=== PATIENT | male | born 1955 | race Caucasian/White ===

== ENCOUNTER → 2016-11-23 | Outpatient (CLI) | payer OTHER, BC | END | disposition home or self-care (01) | LOC: CDC 08:09 | DX: I45.10 Unspecified right bundle-branch block (principal); R94.31 Abnormal electrocardiogram [ECG] [EKG]; K40.90 Unilateral inguinal hernia, without obstruction or gangrene, not specified as recurrent | CPT/HCPCS: 93000 ==

== ENCOUNTER 2016-12-15 05:38 | Day surgery (SDC) | payer OTHER, BC ==
[~2016-12-15] VITALS: Ht 172.7 cm; Wt 71.6 kg
[2016-12-15 06:11] VITALS: BP 115/81
[2016-12-15] MEDS ORDERED: PERCOCET 5/31 TABLET PO (08:43)
[2016-12-15 09:20] VITALS: BP 130/83
[2016-12-15 10:20] VITALS: BP 131/78
== END 2016-12-15 10:30 | disposition home or self-care (01) ==
LOC: SDC 05:38
PROC: 0YU60JZ Supplement Left Inguinal Region with Synthetic Substitute, Open Approach (ICD-10-PCS; principal; 2016-12-15)
DX: K40.91 Unilateral inguinal hernia, without obstruction or gangrene, recurrent (principal); K21.9 Gastro-esophageal reflux disease without esophagitis
CPT/HCPCS: C1781; J0690; J2250; J2405; J3010